=== PATIENT | female | born 1970 | race Caucasian/White ===

== ENCOUNTER 2018-04-01 12:32 | Emergency (ER) | payer BC ==
[~2018-04-01] VITALS: Ht 162.6 cm; Wt 77.1 kg
[~2018-04-01 12:32] MED LIST: NORCO 5-325 TA1 EACH PO
[2018-04-01 15:40] LABS: BILIRUBIN,URINE NEGATIVE (NEGATIVE); CLARITY,URINE SL CLOUDY (CLEAR); COLOR,URINE YELLOW (YELLOW); KETONES,URINE NEGATIVE (NEGATIVE); LEUKOCYTE ESTERASE ,URINE TRACE (NEGATIVE); NITRITE,URINE NEGATIVE (NEGATIVE); PREGNANCY TEST, URINE NEGATIVE (NEGATIVE); PROTEIN,URINE DIPSTICK NEGATIVE (NEGATIVE); URINE UROBILINOGEN 0.2 mg/dL (0.2 - 1)
[2018-04-01] MEDS ORDERED: KETOROLAC TROMETHAMINE 60 MG/2 ML VIAL IM ONE (15:45)
[2018-04-01] MEDS ORDERED: ORPHENADRINE CITRATE 30 MG/ML VIAL IM ONE (15:45)
[2018-04-01 15:52] LABS: BACTERIA,URINE MANY /HPF; EPITHELIAL CELLS,URINE MANY /LPF; MUCUS,URINE MODERATE (RARE); TRANSITIONAL EPI CELLS,URINE MODERATE
[2018-04-01] MEDS ORDERED: CEFTRIAXONE SOD 1 GM VIAL IM ONE (16:30)
[2018-04-01] MEDS ORDERED: LIDOCAINE HCL 1% 2 ML AMP ONE (17:41)
== END 2018-04-01 19:02 | disposition home or self-care (01) ==
LOC: ER 12:32
DX: M54.5 Low back pain (principal); M54.42 Lumbago with sciatica, left side; S39.012A Strain of muscle, fascia and tendon of lower back, initial encounter; D64.9 Anemia, unspecified
CPT/HCPCS: 81001; 81025; 99283; J0696; J1885; J2001; J2360

== ENCOUNTER → 2018-07-01 | Day surgery (SDC) | payer BC ==
[~2018-07-01] MED LIST changes: +CEFAZOLIN SOD 1 GM VIAL ONE; +DEXAMETHASONE SOD PHOS INJ 4 MG/ML VIAL ONE; +FENTANYL CITRATE/PF 100MCG/2 ML INJ ONE; +LIDOCAINE HCL 2% LOCAL INJ 5 ML SDV VIAL INJ ONE; +MIDAZOLAM HCL 2 MG/2 ML VIAL ONE; +ONDANSETRON HCL INJ 2 MG/ML VIAL ONE; +PROPOFOL IV EMULSION 10 MG/ML 20 ML VIAL ONE; +SEVOFLURANE INHAL SOLN 250 ML PEN BTL ONE
--- OUTSIDE RECORDS SUMMARY | 2018-07-01 07:53 | XMS REPORT | Continuity of Care Document ---
Author Author [facility] [place] [facility] Interface Address Unknown Phone Unavailable Problems Problem Status Onset Date Classification Date Reported Comments Source R49.0 Active 06/07/2018 [facility] Dysphagia, unspecified 09/07/2017 12/10/2017 [facility] R13.10 Active 08/28/2017 [facility] PPA, TREMORS Active 08/27/2017 [facility] PET BRAIN IMAGING MET EVAL DX:R47.9-SP Active 10/01/2015 [facility] SPEECH Active [facility] SPEECH-APHASIA Active [facility] Medications Medication Details Route Status Patient Instructions Ordering Provider Order Date Source Allergies, Adverse Reactions, Alerts Substance Category Reaction Severity Reaction type Status Date Reported Comments Source Immunizations Immunization Date Given Site Status Last Updated Comments Source Results Order Name Results Value Reference Range Date Interpretation Comments Source Esophagus BA swallow function video DX Esophagus BA swallow function video DX EXAM: FLUOROSCOPY MODIFIED BARIUM SWALLOW DATE: 09/03/2017 10:59 AM [facility] INDICATION: - DYSPHAGIA. ADDITIONAL INFORMATION: None. COMPARISON: None. TECHNIQUE: Oral barium contrast of differing consistencies was given to the patient to assess swallowing mechanism. The study was performed in conjunction with speech pathology. FLUOROSCOPY TIME: 42 seconds Skin dose: 1 mGy DISCUSSION: The patient was given barium contrast of different consistencies. Thin barium: Normal. [place] barium: Normal. Pudding barium: Normal. Solid with barium: Normal. IMPRESSION: 1. No aspiration or penetration with all consistencies of barium tested. 2. Please also see detailed chart note by speech pathology. 09/03/2017 - - This report was dictated by a Anesthesiology Teacher/Fellow. I have personally reviewed the images as well as the Resident's interpretation and agree with the findings. Read by: Deniz Meadows MD Resident: Deniz Meadows MD Dictated Date/time: 09/03/17 14:13 Electronically Signed by: Job Macias MD 09/03/17 16:13 FINAL REPORT [facility] Brain wo contrast MRI Brain wo contrast MRI Brain wo contrast MRI 05/27/2017 8:29 AM CDT Clinical Indication: - R47.01 Aphasia; Comparison: 10/07/[address] TECHNIQUE: Multiplanar noncontrast MRI of the brain is performed. No intravenous gadolinium was given. FINDINGS: BRAIN: No restricted diffusion is identified. The brain parenchyma has normal signal with normal nance-white junction, sulci, and gyri. There is no extra-axial fluid collection or intraparenchymal hemorrhage. The brain volume is normal. Approximately 4 mm inferior ectopia of the right cerebellar tonsil is present with mild soft tissue fullness of the foramen magnum. CEREBELLOPONTINE REGIONS, SELLA, AND SKULL: The cerebellopontine angles appear unremarkable. No skull abnormality is seen. The pituitary gland appears unremarkable. VENTRICLES/EXTRA-AXIAL: The ventricles and sulci are normal in size and configuration for age. VISUALIZED VESSELS: Major intracranial flow voids are preserved. ORBITS, VISUALIZED PARANASAL SINUSES/MASTOIDS/CERVICAL SPINE: Paranasal sinuses are clear. The mastoid air cells are clear. No orbital pathology is seen. IMPRESSION: 1. No intracranial hemorrhage, mass, or acute infarct. 2. Normal brain volume. 3. 4 mm inferior ectopia of the right cerebellar tonsil. 05/27/2017 - - Read by: Bhavesh Joe MD Dictated Date/time: 05/28/17 09:59 Electronically Signed by: Bhavesh Joe MD 05/28/17 10:05 FINAL REPORT [facility] PET CT Dementia PET CT Dementia PET/CT SCAN: TECHNIQUE: 10.3 mCi of FDG were administered intravenously and dedicated 3 D SPECT images of the brain were performed in axial, sagittal and coronal projections. Quantitative analysis was performed utilizing the [facility] Probabilistic [place]on. Z score for various brain structures were obtained following comparison of the patient's brain with normal adults in the atlas. CLINICAL HX: Aphasia, Evaluate for Alzheimer's dementia. FINDINGS: On visual survey, there is metabolic activity in both temporal lobes. Activity in the frontal lobes, parietal lobes and occipital lobes appears within normal limits. There is nonspecific decrease in metabolic activity in both lobes of the cerebellum. QUANTITATIVE ANALYSIS: Note: Z score of less than 1.65 is considered to be statistically significant. Frontal lobe Z score is 1.56 standard deviations ABOVE normal. Temporal lobe Z score is 0.92 standard deviations below normal. Medial temporal lobe Z score is 1.55 standard deviations below normal. Lateral temporal lobe Z score is 0.22 standard deviations below normal. Parietal lobe Z score is 1.72 standard deviations ABOVE normal. Posterior cingulate gyrus Z score is 0.29 standard deviations ABOVE normal. Occipital lobe Z score is 0.01 standard deviations below normal. Amygdala Z score is 2.76 standard deviations below normal The quantitative analysis confirms the visual survey evaluation indicating that there is no significant decrease in metabolic activity in the parietal, temporal or frontal lobes. Findings are not typical for Alzheimer's dementia nor frontotemporal dementia. IMPRESSION: PET/CT findings are not typical for frontotemporal dementia nor Alzheimer's type dementia. SL:13 10/07/2015 - - Read by: Koko Marie MD Dictated Date/time: 10/08/15 10:50 Electronically Signed by: Koko Marie MD 10/08/15 11:08 FINAL REPORT [facility] Vital Signs Vital Sign Value Date Comments Source Encounters Location Location Details Encounter Type Encounter Number Reason For Visit Attending Provider ADM Date DC Date Status Source [facility] Outpatient [id number] Vy Fuentes 10/07/2015 10/08/2015 [facility] OP Therapy Patients [id number] Vy Fuentes 11/02/2015 12/02/2015 [facility] OP Therapy Patients [id number] KEVAN HERNANDEZ JUAN 01/10/2016 02/09/2016 [facility] Outpatient Imaging [facility] Out Diag Services [id number] Uriah Bellamy 05/27/2017 05/28/2017 FATIMAH [facility] Outpatient [id number] Suur Biliciler 09/03/2017 09/04/2017 [facility] OP Therapy Patients [id number] Suur Biliciler 01/16/2018 02/15/2018 [facility] Tots Therapy [id number] Suur Biliciler 02/15/2018 03/17/2018 [facility] Procedures Procedure Code Date Perfomer Comments Source
--- OUTSIDE RECORDS SUMMARY | 2018-07-01 07:53 | XMS REPORT | Summary of Care ---
Author Author SE DEL VALLE M.D. Organization Unknown Address Unknown Phone Unavailable Care Team Providers Care Lease Operator Name Role Phone SE DEL VALLE M.D. Unavailable Unavailable MARIAELENA LINARES, SHANNON Peterson Unavailable Unavailable JAMES LINARES, HODA RODRIGUEZ Unavailable Unavailable JAMIN LINARES RI, MEME BOOKER Unavailable Unavailable Functional Status Name Dates Details Functional status health issues are not documented Status: Name Dates Details Cognitive status health issues are not documented Status: Problems Name Dates Details Dysphonia (784.42, R49.0) Status: Active Depression (311, F32.9) Status: Active Moderate single current episode of major depressive disorder (296.22, F32.1) Status: Active Dysphagia (787.20, R13.10) Status: Active Dysarthria (784.51, R47.1) Status: Active Medications Name Dates Details None - No Current Medications Active Allergies and Adverse Reactions Name Dates Details Demerol SOLN (Allergy) Status: Active Past Medical History Name Dates Details History of anemia (V12.3, Z86.2) Status: Resolved Procedures Procedure Dates Details History of section Completed History of rotator cuff repair Completed Immunization Name Dates Details Immunizations not documented Family History Name Dates Details Family history of seizures (V19.8, Z84.89) Status: Active Name Dates Details Family history of cardiac disorder (V17.49, Z82.49) Status: Active Name Dates Details Family history of cardiac disorder (V17.49, Z82.49) Status: Active Name Dates Details Family history of cardiac disorder (V17.49, Z82.49) Status: Active Social History Name Dates Details - Status: Name Dates Details Never smoker Vital Signs Date Test Result Details No Known Vitals to report Results Date Description Value Details Results not documented Plan of Care Name Dates Details Planned Observations Planned Goals not documented Interventions Provided Plan* Endoscopy today * *her posterior tongue appears to be sluggish but there are no laryngeal lesions * Will contact Dr Campbell to discuss further * The patient confirms that consultation was verbally initiated by the specified requesting physician. Final recommendations will be communicated back to the requesting physician through the shared medical record or written communication (sent by fax or US mail) Instructions Name Dates Details Instructions not documented Encounters Appointment; BENNY MORGAN M.D. Encounter Diagnosis: Problem not documented On: 24-Apr-2017 8:00 Appointment; MEME NEVILLE M.D. Encounter Diagnosis: Problem not documented On: 15-May-2017 8:30 Appointment; BRYAN GARLAND, PHD Encounter Diagnosis: Problem not documented On: 15-Jun-2017 8:30 Appointment; MEME NEVILLE M.D. Encounter Diagnosis: Problem not documented On: 03-Jul-2017 9:30 Appointment; DAREK WARD M.D. Encounter Diagnosis: Problem not documented On: 31-Jul-2017 13:00 Appointment; DAREK WARD M.D. Encounter Diagnosis: Problem not documented On: 31-Jul-2017 13:00 Appointment; SE DEL VALLE M.D. Encounter Diagnosis: Problem not documented On: 17-Sep-2017 13:30
[2018-07-01 13:00] VITALS: BP 108/60
--- NOTE | 2018-07-01 13:08 | Operative Report ---
DATE OF PROCEDURE: July 01, 2018 LAB HEAD: Hong Jones PA-C The patient was brought to the operating room for induction of anesthesia. Throughout this case, my PA's assistance was necessary for retraction of soft tissue and positioning of the extremity. This allows for efficient and technically successful execution of the operation and is considered medically necessary. PREOPERATIVE DIAGNOSIS: Right knee medial meniscal tear. POSTOPERATIVE DIAGNOSES: 1. Right knee medial meniscal tear. 2. 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 3. 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 PROCEDURES: 1. Right knee arthroscopy. 2. Partial medial meniscectomy. 3. Chondroplasty of the patella and medial femoral condyle. INDICATIONS: The patient is a 48-year-old lady who has clinic signs and symptoms consistent with a medial meniscal tear in her right knee. She also has some signs of underlying arthritis. The findings and options have been discussed. She has failed conservative management and would like to proceed with arthroscopy. The risks and benefits have been discussed. Realistic expectations have been stressed. She states she understands and wishes to proceed. DESCRIPTION OF PROCEDURE: The patient was brought to the operating room and placed under general anesthetic. Her right lower extremity was prepped and draped in a sterile manner. A preoperative time out was performed. The extremity had been exsanguinated, and a proximal tourniquet was inflated to 300 mmHg. Standard arthroscopy portals were established. The knee was insufflated with sterile saline and systematically inspected. She was noted to have some inflammation in the suprapatellar pouch. The undersurface of the patella had some grade-2 changes of chondromalacia. There were developing medial osteophytes. The medial compartment was inspected and probed. There was indeed a complex tear of the posterior horn of the medial meniscus. However, there were also fairly extensive grade-3 changes of chondromalacia of the medial femoral condyle. Both the medial meniscus and medial femoral condyle were debrided back to a stable surface using a combination of biting forceps and a meniscal shaver. [id number] photographs were taken. The cruciate ligaments were inspected and probed. They were intact and stable. The lateral compartment was unremarkable. We returned to the patellofemoral groove. The unstable margins of cartilage were debrided using a mechanical shaver off of the undersurface of the patella. The arthroscopic instruments were then removed after thoroughly irrigating the knee. The portal incisions were closed with nylon stitches. A sterile bandage was applied. Estimated blood loss was less than 5 mL. All needle and sponge counts were correct. Job#: [id number]
== END | disposition home or self-care (01) ==
LOC: OR 07:49
PROVIDERS: ATTEND Specialist
DX: S83.231A Complex tear of medial meniscus, current injury, right knee, initial encounter (principal); M22.41 Chondromalacia patellae, right knee; M17.11 Unilateral primary osteoarthritis, right knee; M25.761 Osteophyte, right knee; R13.10 Dysphagia, unspecified; R27.8 Other lack of coordination; M54.9 Dorsalgia, unspecified; H66.90 Otitis media, unspecified, unspecified ear; X58.XXXA Exposure to other specified factors, initial encounter; Z88.8 Allergy status to other drugs, medicaments and biological substances; Z87.440 Personal history of urinary (tract) infections
CPT/HCPCS: 29881; 81025; J0690; J1100; J2001; J2250; J2405; J2704